=== PATIENT | male | born 1945 | race Caucasian/White ===

== ENCOUNTER 2020-07-26 17:14 | Inpatient (IN) ==
[2020-07-26] MEDS ORDERED: *HR* FentaNYL (PF) 100 MCG/2 ML VIAL IVP ONE ×3 (18:38→18:56)
[2020-07-26] MEDS ORDERED: *HR* FentaNYL (PF) 100 MCG/2 ML VIAL IVP SCH ×2 (18:40→18:50)
[2020-07-26] MEDS ORDERED: *HR* FentaNYL (PF) 100 MCG/2 ML VIAL ONE (18:54)
[2020-07-26] MEDS ORDERED: 0.9 % Sodium Chloride 1,000 ML ONE (18:56)
[2020-07-26] MEDS ORDERED: *HR* HYDROmorphone (PF) 1 MG/ML SYRINGE IVP ONE (19:08)
[2020-07-26] MEDS ORDERED: 0.9 % Sodium Chloride 1,000 ML IVC ONE (19:15)
[2020-07-26 20:00] LABS: Basophils # 0.1 K/mcL (0.0-0.2); Basophils % 0.4 %; Eosinophils # 0.1 K/mcL (0.0-0.6); Eosinophils % 0.4 %; Hemoglobin 14.8 g/dL (12.9-16.9); Immature Granulocytes % 0.4 % (0-4); Lymphocytes # 0.8 K/mcL (0.6-4.6); Lymphocytes % 6.9 %; Mean Corpuscular HGB Conc 32.9 g/dL (31.6-35.5); Mean Corpuscular Hemoglobin 31.8 pg (28.0-33.3); Mean Corpuscular Volume 96.6 fL (83.0-100.0); Mean Platelet Volume 9.1 fL (9.4-12.4); Monocytes # 0.6 K/mcL (0.0-1.3); Monocytes % 5.1 %; Neutrophils # 9.7 K/mcL (1.6-8.9); Platelet Count 168 K/mcL (140-400); Red Blood Count 4.66 M/mcL (4.19-5.50); Red Cell Distribution Width 12.2 % (11.5-14.5); Segmented Neutrophils % 86.8 %; White Blood Count 11.2 K/mcL (4.3-11.1)
[2020-07-26 20:16] LABS: BUN/Creatinine Ratio 20 (6-26); Blood Urea Nitrogen 23 mg/dL (8-23); Calcium 9.2 mg/dL (8.6-10.3); Carbon Dioxide 23 mEq/L (23-29); Chloride 106 mEq/L (98-107); Glucose 176 mg/dL (70-105); Osmolality,Calculated 292 (280-300); Potassium 4.2 mEq/L (3.5-5.1); Sodium 137 mEq/L (136-145); eGFR For African Americans > 60 (> 60); eGFR For Non-African Americans > 60 (> 60)
[2020-07-26] MEDS ORDERED: *HR* OxyCODONE/APAP 5/325 TABLET PO PRN (21:02)
[2020-07-26] MEDS ORDERED: Naloxone 0.4 MG/ML INJ IVP PRN (21:09)
[2020-07-26] MEDS ORDERED: Dextrose Gel 15 GM/37.5 ML TUBE PO PRN ×2 (21:16)
[2020-07-26] MEDS ORDERED: D5% in Water 1,000 ML IVC PRN (21:16)
[2020-07-26] MEDS ORDERED: *HR* Dextrose 50 % in Water (Vial) 50 ML VIAL IVP PRN (21:16)
[2020-07-26] MEDS: *HR* OxyCODONE/APAP 10/325 TABLET PO PRN (21:18)
[2020-07-26] MEDS: Ringers Solution, Lactated 1,000 ML IVC SCH (23:08)
[2020-07-27 02:46] LABS: Basophils % 0.3 %; Eosinophils % 0.3 %; Hemoglobin 13.4 g/dL (12.9-16.9); Immature Granulocytes % 0.2 % (0-4); Lymphocytes # 1.2 K/mcL (0.6-4.6); Lymphocytes % 13.9 %; Mean Corpuscular HGB Conc 32.7 g/dL (31.6-35.5); Mean Corpuscular Hemoglobin 31.4 pg (28.0-33.3); Mean Platelet Volume 9.1 fL (9.4-12.4); Monocytes # 0.7 K/mcL (0.0-1.3); Monocytes % 8.1 %; Neutrophils # 6.9 K/mcL (1.6-8.9); Platelet Count 165 K/mcL (140-400); Red Blood Count 4.27 M/mcL (4.19-5.50); Red Cell Distribution Width 12.5 % (11.5-14.5); Segmented Neutrophils % 77.2 %; White Blood Count 8.9 K/mcL (4.3-11.1)
[2020-07-27 02:55] LABS: INR 1.1; Prothrombin Time 12.3 Seconds (9.4-12.1)
[2020-07-27 03:06] LABS: BUN/Creatinine Ratio 20 (6-26); Blood Urea Nitrogen 22 mg/dL (8-23); Calcium 8.6 mg/dL (8.6-10.3); Carbon Dioxide 22 mEq/L (23-29); Chloride 105 mEq/L (98-107); Glucose 230 mg/dL (70-105); Osmolality,Calculated 289 (280-300); Potassium 4.7 mEq/L (3.5-5.1); Sodium 134 mEq/L (136-145); eGFR For African Americans > 60 (> 60); eGFR For Non-African Americans > 60 (> 60)
[2020-07-27] MEDS: *HR* OxyCODONE/APAP 10/325 TABLET PO PRN ×2 (03:53→09:45)
[2020-07-27] MEDS: Aspirin Enteric Coated 81 MG Tablet PO SCH (09:17)
[2020-07-27] MEDS: Cholecalciferol (D-3) 1,000 UNIT (25MCG) TABLET PO SCH (09:17)
[2020-07-27] MEDS: Ringers Solution, Lactated 1,000 ML IVC SCH (09:17)
[2020-07-27] MEDS: lisinopriL 5 MG TABLET PO SCH (09:18)
[2020-07-27] MEDS: Insulin LISPRO 300 UNITS/3 ML VIAL SQ SCH ×3 (09:22→17:04)
[2020-07-27] MEDS ORDERED: Morphine Sulfate 2 MG/ML SYRINGE IVP ONE (12:05)
[2020-07-27] MEDS ORDERED: Insulin DETEMIR 100 UNIT/ML X5UNITS SQ SCH (21:00)
[2020-07-27] MEDS ORDERED: Insulin LISPRO 300 UNITS/3 ML VIAL SQ SCH (21:00)
[2020-07-28 05:09] LABS: Basophils % 0.4 %; Eosinophils # 0.6 K/mcL (0.0-0.6); Eosinophils % 8.6 %; Hematocrit 39.3 % (37.5-50.1); Hemoglobin 12.8 g/dL (12.9-16.9); Immature Granulocytes % 0.3 % (0-4); Lymphocytes # 1.4 K/mcL (0.6-4.6); Lymphocytes % 19.7 %; Mean Corpuscular HGB Conc 32.6 g/dL (31.6-35.5); Mean Corpuscular Hemoglobin 30.8 pg (28.0-33.3); Mean Corpuscular Volume 94.5 fL (83.0-100.0); Mean Platelet Volume 9.2 fL (9.4-12.4); Monocytes # 0.7 K/mcL (0.0-1.3); Monocytes % 9.5 %; Neutrophils # 4.3 K/mcL (1.6-8.9); Platelet Count 147 K/mcL (140-400); Red Blood Count 4.16 M/mcL (4.19-5.50); Red Cell Distribution Width 12.7 % (11.5-14.5); Segmented Neutrophils % 61.5 %; White Blood Count 6.9 K/mcL (4.3-11.1)
[2020-07-28 05:26] LABS: BUN/Creatinine Ratio 16 (6-26); Blood Urea Nitrogen 20 mg/dL (8-23); Calcium 8.7 mg/dL (8.6-10.3); Carbon Dioxide 25 mEq/L (23-29); Chloride 104 mEq/L (98-107); Glucose 164 mg/dL (70-105); Magnesium 1.8 mg/dL (1.6-2.6); Osmolality,Calculated 286 (280-300); Potassium 4.1 mEq/L (3.5-5.1); Sodium 135 mEq/L (136-145); eGFR For African Americans > 60 (> 60); eGFR For Non-African Americans 56 (> 60)
[2020-07-28] MEDS: lisinopriL 5 MG TABLET PO SCH (08:41)
[2020-07-28] MEDS: Cholecalciferol (D-3) 1,000 UNIT (25MCG) TABLET PO SCH (08:41)
[2020-07-28] MEDS: Aspirin Enteric Coated 81 MG Tablet PO SCH (08:41)
[2020-07-28] MEDS: Insulin LISPRO 300 UNITS/3 ML VIAL SQ SCH ×2 (08:42→12:18)
[2020-07-28 11:30] LABS: Estimated Average Glucose 163 mg/dl
[2020-07-28 11:46] VITALS: BP 118/69
== END 2020-07-28 15:33 | disposition home or self-care (01) | DRG 201 ==
LOC: 2ANU 17:14 → EMEROOARM 17:14 → SUATTDRO 20:12 → 2ANU 20:40 → SUATTDRO 07-27 10:13
PROVIDERS: ADMIT Internal Medicine; ATTEND Internal Medicine